=== PATIENT | male | born 1990 | race American Indian/Alaskan Native ===

== ENCOUNTER 2019-12-13 18:30 | Emergency (ER) | payer SELFPAY ==
[2019-12-13 19:06] VITALS: BP 128/67
[2019-12-13] MEDS ORDERED: IBUPROFEN 600 MG TAB PO ONE ×2 (19:08→19:12)
--- NOTE | 2019-12-13 20:51 | XRay Report ---
CHEST PA AND LATERAL VIEWS INDICATION: PRODUCTIVE COUGH/FEVER. COMPARISON: None. FINDINGS: Support devices: None. Heart: Within normal limits. Lungs/Pleura: No acute pulmonary or pleural findings. IMPRESSION: 1. No acute findings. Signer Name: Bijan Hall MD Signed: 12/13/2019 8:46 PM Workstation Name: [id number]
--- NOTE | 2019-12-13 21:02 | Emergency Department Report ---
ED General Adult HPI - General Chief complaint: Sore Throat Stated complaint: HEADACHE/INFLAMMATION/SORE THROAT Time Seen by Provider: 12/13/19 20:36 Source: patient Mode of arrival: Ambulatory Limitations: No Limitations - History of Present Illness Initial comments: Mr. Grullon is a 28-year-old male who presents for flulike symptoms 2 days. Symptoms include headache, fever, body aches, cough, sore throat, ear pain, amylase. Since I exacerbated by activity. Symptoms are relieved by nothing child. MAXIMUM TEMPERATURE 101.2.. There is no shortness of breath or wheezing. Onset/Timin -: days(s) Location: head, chest, back Radiation: non-radiation Severity scale (0 -10): 4 (bodyaches) Quality: aching Consistency: constant Improves with: none Worsens with: movement, other (activity ) Associated Symptoms: cough, fever/chills, headaches, malaise Treatments Prior to Arrival: none - Related Data Previous Rx's Medication Instructions Recorded Last Taken Type Cetirizine HCl/Pseudoephedrine 1 each PO BID #20 tab.er.12h 09/09/18 Unknown Rx [Zyrtec-D Tablet] Fluticasone [Flonase] 2 spray NS QDAY #1 bottle 09/09/18 Unknown Rx Ibuprofen [Motrin] 800 mg PO Q8HR PRN #30 tablet 09/09/18 Unknown Rx predniSONE [Deltasone] 20 mg PO DAILY #15 tablet 09/09/18 Unknown Rx Amoxicillin/Potassium Clav 1 each PO BID 10 Days #20 tablet 12/13/19 Unknown Rx [Augmentin 875-125 Tablet] Allergies Allergy/AdvReac Type Severity Reaction Status Date / Time No Known Allergies Allergy Unverified 09/09/18 09:51 ED Review of Systems ROS: Stated complaint: HEADACHE/INFLAMMATION/SORE THROAT Other details as noted in HPI Constitutional: chills, fever, malaise Eyes: denies: eye pain, eye discharge, vision change ENT: ear pain, throat pain, congestion Respiratory: cough. denies: shortness of breath, wheezing Cardiovascular: denies: chest pain, palpitations Endocrine: no symptoms reported Gastrointestinal: nausea. denies: abdominal pain, vomiting, diarrhea, constipation Genitourinary: denies: urgency, dysuria, frequency, hematuria, discharge Musculoskeletal: back pain. denies: joint swelling, arthralgia, myalgia Skin: denies: rash, lesions Neurological: headache. denies: numbness, paresthesias, confusion, vertigo Psychiatric: denies: anxiety, depression Hematological/Lymphatic: denies: easy bleeding, easy bruising ED Past Medical Hx - Past Medical History Previous Medical History?: No Additional medical history: sinus issues - Surgical History Past Surgical History?: No - Social History Smoking Status: Never Smoker Substance Use Type: Marijuana - Medications Home Medications: Home Medications Medication Instructions Recorded Confirmed Last Taken Type Cetirizine HCl/Pseudoephedrine 1 each PO BID #20 tab.er.12h 09/09/18 Unknown Rx [Zyrtec-D Tablet] Fluticasone [Flonase] 2 spray NS QDAY #1 bottle 09/09/18 Unknown Rx Ibuprofen [Motrin] 800 mg PO Q8HR PRN #30 tablet 09/09/18 Unknown Rx predniSONE [Deltasone] 20 mg PO DAILY #15 tablet 09/09/18 Unknown Rx Amoxicillin/Potassium Clav 1 each PO BID 10 Days #20 tablet 12/13/19 Unknown Rx [Augmentin 875-125 Tablet] ED Physical Exam - General Limitations: No Limitations General appearance: alert, in no apparent distress - Head Head exam: Present: atraumatic, normocephalic - Eye Eye exam: Present: normal appearance, PERRL, EOMI Pupils: Present: normal accommodation - ENT ENT exam: Present: mucous membranes moist, normal external ear exam - Expanded ENT Exam Expanded Ear exam: Present: normal external inspection Mouth exam: Absent: trismus Throat exam: Positive: tonsillar erythema, tonsillomegaly, tonsillar exudate. Negative: R peritonsillar mass, L peritonsillar mass - Neck Neck exam: Present: normal inspection, full ROM, lymphadenopathy. Absent: tenderness - Respiratory Respiratory exam: Present: normal lung sounds bilaterally, chest wall tenderness (right lateral chest wall tenderness right lateral to deep palpation). Absent: respiratory distress, wheezes, rales, rhonchi, stridor - Cardiovascular Cardiovascular Exam: Present: regular rate, normal rhythm, normal heart sounds. Absent: systolic murmur, diastolic murmur, rubs, gallop - GI/Abdominal GI/Abdominal exam: Present: soft, normal bowel sounds. Absent: distended, tenderness, guarding, rebound, rigid, bruit, hernia - Rectal Rectal exam: Present: deferred - Extremities Exam Extremities exam: Present: normal inspection, full ROM - Back Exam Back exam: Present: normal inspection, full ROM. Absent: tenderness, CVA tenderness (R), CVA tenderness (L) - Neurological Exam Neurological exam: Present: alert, oriented X3, CN II-XII intact, normal gait - Psychiatric Psychiatric exam: Present: normal affect - Skin Skin exam: Present: warm, dry, intact, normal color. Absent: rash ED Course Vital Signs 12/13/19 12/13/19 19:03 19:13 Temperature 101.2 F H Pulse Rate 102 H Respiratory 18 18 Rate Blood Pressure 128/67 O2 Sat by Pulse 93 Oximetry ED Medical Decision Making - Lab Data Labs 12/13/19 19:20 Influenza A (Rapid) Positive A Influenza B (Rapid) Negative Group A Strep Rapid Negative - Radiology Data Radiology results: report reviewed, image reviewed Ordering Physician: ELIZABETH RICCI NP Date of Service: 12/13/19 Procedure(s): XR chest routine 2V Accession Number(s): [id number] cc: ELIZABETH RICCI NP Fluoro Time In Minutes: CHEST PA AND LATERAL VIEWS INDICATION: PRODUCTIVE COUGH/FEVER. COMPARISON: None. FINDINGS: Support devices: None. Heart: Within normal limits. Lungs/Pleura: No acute pulmonary or pleural findings. IMPRESSION: 1. No acute findings. Signer Name: Bijan Hall MD Signed: 12/13/2019 8:46 PM Workstation Name: [id number] Transcribed By: Dictated By: Bijan Hall MD Electronically Authenticated By: Bijan Hall MD Signed Date/Time: 12/13/192045 DD/ 45 TD/TT: - Medical Decision Making tp is flu A postive via culture,. noted tonsilary exudate, plan augmentin, ibuprofen, pt decline tamiflu, contiue to hydrate follow up with pcp in 2-3 days. Critical care attestation.: If time is entered above; I have spent that time in minutes in the direct care of this critically ill patient, excluding procedure time. ED Disposition Clinical Impression: Influenza A Pharyngitis Qualifiers: Pharyngitis/tonsillitis etiology: unspecified etiology Qualified Code(s): J02.9 - Acute pharyngitis, unspecified Disposition: TO HOME OR SELFCARE Is pt being admited?: No Does the pt Need Aspirin: No Condition: Stable Instructions: Influenza (ED), Pharyngitis (ED) Prescriptions: Amoxicillin/Potassium Clav [Augmentin 875-125 Tablet] 1 each PO BID 10 Days #20 tablet Referrals: MERLINE SINGH MD [Staff Physician] - 3-5 Days Forms: Work/School Release Form(ED) Time of Disposition: 21:09
== END 2019-12-13 21:16 | disposition home or self-care (01) ==
LOC: ED 18:30
DX: J10.1 Influenza due to other identified influenza virus with other respiratory manifestations (principal); F12.10 Cannabis abuse, uncomplicated; Z79.899 Other long term (current) drug therapy
CPT/HCPCS: 71046; 87116; 87400; 87430